=== PATIENT | female | born 1965 | race Hispanic/Latino ===

== ENCOUNTER 2020-04-05 00:19 | Emergency (ER) | payer OTHER ==
[2020-04-05 01:08] LABS: #Basophils 0.1 thou/uL (0.0-0.2); #Eosinphils 0.5 thou/uL (0.0-0.7); #Lymphocytes 2.2 thou/uL (1.20-3.40); #Monocytes 0.9 thou/uL (0.11-0.59); #Neutrophils 10.7 thou/uL (1.40-6.50); %Basophils 0.5 % (0.0-1.0); %Eosinophils 3.5 % (0.0-10.0); %Lymphocytes 15.5 % (21.0-51.0); %Monocytes 6.1 % (0.0-10.0); %Neutrophils 74.5 % (42.0-75.0); Hemoglobin 12.1 g/dL (12.0-16.0); Mean Corpuscular HGB CONC 30.1 g/dL (32.0-36.0); Mean Corpuscular Hemoglobin 25.2 pg (27.0-31.0); Mean Corpuscular Volume 83.4 fL (78.0-98.0); Mean Platelet Volume 8.1 fL (7.4-10.4); Platelet Count 286 thou/uL (130-400); RBC Distribution Width 14.4 % (11.5-14.5); White Blood Cell (WBC) Count 14.4 thou/uL (4.8-10.8)
[2020-04-05 01:17] LABS: Clarity Turbid (Clear)
[2020-04-05 01:18] LABS: Leukocyte Unable to Interpret (Negative)
[2020-04-05 01:19] LABS: Bilirubin Unable to Interpret (Negative); Blood, Urine Unable to Interpret (Negative); Glucose, Urine (Dipstick) Unable to Interpret mg/dL (Negative); Ketone, Urine Unable to Interpret mg/dL (Negative); Nitrite Unable to Interpret (Negative); Protein, Urine (Dipstick) Unable to Interpret mg/dL (Neg-Trace); Urobilinogen UNABLE TO INTERPRET mg/dL (Less than 2)
[2020-04-05 01:20] LABS: Bacteria/HPF 1+ HPF (None Seen); RBC/HPF Greater than 50 HPF (0-3)
[2020-04-05 01:21] LABS: Pregnancy Test - Urine (BHCG) Negative (Negative); Pregu Control Background? CLEAR/WHITE (CLR/WHITE); Pregu Control Bar Appear? YES (CONTROL BAR)
[2020-04-05 01:26] LABS: ALT (SGPT) 17 U/L (8-55); AST (SGOT) 14 U/L (5-34); Albumin 4.2 g/dL (3.5-5.0); Alkaline Phosphatase 94 U/L (40-110); Anion Gap 16 mmol/L (10-20); BUN (Urea Nitrogen) 22 mg/dL (9.8-20.1); Bilirubin, Total 0.2 mg/dL (0.2-1.2); Calc. Creatinine Clearance 0 mL/min (70-130); Calcium 8.7 mg/dL (7.8-10.44); Carbon Dioxide 23 mmol/L (22-29); Chloride 105 mmol/L (98-107); Estimated GFR-MDRD Greater than 90; Globulin 2.9 g/dL (2.4-3.5); Glucose 106 mg/dL (70-105); Lipase 32 U/L (8-78); Potassium 3.5 mmol/L (3.5-5.1); Protein, Total 7.1 g/dL (6.0-8.3); Sodium 140 mmol/L (136-145)
[2020-04-05] MEDS ORDERED: Sodium Chloride 0.9% 100 ML ONE (01:58)
[2020-04-05] MEDS ORDERED: cefTRIAXone\\ROCEPHIN 2 GM VIAL ONE (01:58)
--- NOTE | 2020-04-05 07:56 | CT ---
PRELIMINARY REPORT/[facility]/EMERGENCY AFTER HOURS PROCEDURE: EXAM: CT Abdomen and Pelvis Without Intravenous Contrast CLINICAL HISTORY: GROSS HEMATURIA W/ CLOTS, BACK PAIN AND CHILLS TECHNIQUE: Axial computed tomography images of the abdomen and pelvis without intravenous contrast. CONTRAST: None. COMPARISON: None provided. FINDINGS: LUNG BASES: Calcified granuloma in the left lower lobe. No pleural effusion. The heart is normal size. LIVER: Unremarkable. GALLBLADDER AND BILE DUCTS: Surgical absence of the gallbladder. PANCREAS: Unremarkable. SPLEEN: Unremarkable. ADRENAL GLANDS: Unremarkable. KIDNEYS, URETERS, AND BLADDER: Unremarkable. No hydronephrosis or nephrolithiasis. No ureteral or bladder calculi. Thickening of th e bladder wall with stranding. STOMACH AND BOWEL: No obstruction. No wall thickening. No CT evidence of colitis or acute diverticulitis. APPENDIX: No CT evidence for appendicitis. PERITONEUM: No free fluid. No free air. LYMPH NODES: No lymphadenopathy. REPRODUCTIVE: Post hysterectomy. VASCULATURE: No aortic aneurysm. ABDOMINAL WALL AND SOFT TISSUES: Fat-containing umbilical hernia with abdominal wall defect measuring 5.2 cm. No strangulate and the h erniated contents. BONES: Bilateral pars defects at L5 with grade 1 anterolisthesis. No acute fractures or worrisome osseous le sions. IMPRESSION: 1. No urinary stone identified. 2. Bladder wall thickening with stranding. Correlate for cystitis. 3. 5.2 cm umbilical hernia. ELECTRONICALLY SIGNED BY: Seb Albarran M.D. Apr 05, 2020 1:42:51 AM CDT FINAL REPORT EMERGENCY AFTER-HOURS STUDY: CT ABDOMEN NONCONTRAST CT PELVIS NONCONTRAST: (Urolithiasis protocol) DATE: 04/05/2020. TIME: 1:07 AM. HISTORY: 54 year old female with gross hematuria, low back pain, and chills. TECHNIQUE: IV injection of iodinated contrast media: None. Oral contrast media: None. FINDINGS: Other than for urolithiasis, the lack of IV and oral contrast limits the evaluation. Liver: No contour abnormalities. Spleen: No splenomegaly. Pancreas: No contour abnormalities. Adrenals: No mass. Kidneys: No nephrolithiasis or overt hydronephrosis. Ureters: No calculi. Bladder: No calculi. Abdominal aorta: No aneurysm. Small bowel: No dilation. Colon: No adjacent fat stranding. Appendix: No dilation or adjacent fat stranding. Free air: None. Free fluid: None. Fat-containing umbilical hernia. No small bowel loop involved. Clips in gallbladder fossa. Bilateral L5 spondylolysis causing mild grade 1 spondylolisthesis at L5-S1, with severe left neural f oraminal stenosis. Agree with preliminary report by [facility]. IMPRESSION: 1. No acute findings. 2. No urolithiasis or obstructive uropathy. 3. 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 4. Status post cholecystectomy. 5. Fat-containing umbilical hernia without complications. Transcribed Date/Time: 04/05/2020 8:43 AM
== END 2020-04-05 02:56 | disposition home or self-care (01) ==
LOC: NAV ERS 00:19
DX: N39.0 Urinary tract infection, site not specified (principal); R31.9 Hematuria, unspecified; M19.90 Unspecified osteoarthritis, unspecified site; F41.9 Anxiety disorder, unspecified; Z79.899 Other long term (current) drug therapy
CPT/HCPCS: 36415; 74176; 80053; 81003; 81015; 81025; 83690; 85025; 87077; 87086; 87186; 96365; J0696; J3490

== ENCOUNTER 2020-07-30 08:42 | Outpatient (CLI) | payer OTHER ==
--- NOTE | 2020-07-30 09:15 | RAD ---
Lumbar spine 3 views: 07/30/2020 HISTORY: Back pain FINDINGS: Clips in the right upper quadrant suggest prior cholecystectomy. 5 lumbar type vertebral rosalva dies are present with intact pedicles on frontal imaging. The lateral imaging demonstrates normal vertebral body height and alignment. No anterolisthesis or retrolisthesis is seen. There is mild multilevel lower lumbar spine facet hyper trophy. Bilateral L5 pars defects are present. There is mild disc space narrowing and anterior osteophyte formation at L2-3. If there are radicular symptoms, MRI is recommended. IMPRESSION: Chronic findings as detailed above.
--- NOTE | 2020-07-30 10:40 | RAD ---
LEFT KNEE 4 VIEWS: Date: 07/30/2020 HISTORY: Bilateral knee pain. FINDINGS/IMPRESSION: No fracture, dislocation, or bony destruction seen. There is joint space narrowing in the medial tibi ofemoral compartment. No joint effusion is seen. No significant osteophytosis is seen. POS: [facility]
--- NOTE | 2020-07-30 10:40 | RAD ---
RIGHT KNEE 4 VIEWS: Date: 07/30/2020 HISTORY: Bilateral knee pain. FINDINGS/IMPRESSION: No fracture, dislocation, or bony destruction seen. There is joint space narrowing in the medial tibi ofemoral compartment. No significant osteophytosis or joint effusion is seen. POS: [facility]ZA
--- NOTE | 2020-07-30 10:41 | RAD ---
BILATERAL UPRIGHT WEIGHTBEARING AP VIEWS OF KNEES: Date: HISTORY: Bilateral knee pain FINDINGS/IMPRESSION: There is narrowing of the medial tibiofemoral joint spaces bilaterally. No fracture, dislocation, or bony destruction is seen. POS: MZA
== END 2020-07-30 08:43 | disposition home or self-care (01) ==
LOC: NAV RAD 08:42
PROVIDERS: ATTEND Family Medicine
DX: M25.561 Pain in right knee (principal); M25.562 Pain in left knee; M54.32 Sciatica, left side; M17.0 Bilateral primary osteoarthritis of knee; M47.816 Spondylosis without myelopathy or radiculopathy, lumbar region
CPT/HCPCS: 72100; 73565